=== PATIENT | female | born 1975 | race Hispanic/Latino ===

== ENCOUNTER 2016-10-20 09:55 | Emergency (ER) | payer SELFPAY ==
[2016-10-20 10:34] VITALS: BP 110/75
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
== END 2016-10-20 13:09 | disposition left against medical advice (07) ==
LOC: ED 09:55
DX: M79.1 Myalgia (principal); R51 Headache; Z53.21 Procedure and treatment not carried out due to patient leaving prior to being seen by health care provider; Y08.89XA Assault by other specified means, initial encounter; Y93.9 Activity, unspecified; Y92.9 Unspecified place or not applicable; Y99.9 Unspecified external cause status